=== PATIENT | female | born 1995 | race Caucasian/White ===

== ENCOUNTER 2022-11-24 13:10 | Emergency (ER) | payer OTHER ==
[~2022-11-24] VITALS: Ht 180.3 cm; Wt 85.4 kg
[2022-11-24] MEDS ORDERED: DERMABOND TOPICAL SKIN ADHESIVE TOP ONE (14:10)
[2022-11-24 14:58] VITALS: BP 117/72; TEMP 98.6; O2SAT 100
== END 2022-11-24 15:01 | disposition home or self-care (01) ==
LOC: M ED 13:10
DX: S61.211A Laceration without foreign body of left index finger without damage to nail, initial encounter (principal); W26.0XXA Contact with knife, initial encounter; Y99.0 Civilian activity done for income or pay

== ENCOUNTER → 2022-11-24 | Outpatient (CLI) | payer OTHER ==
[2022-11-24 14:25] LABS: BASO # 0.1 10^3/uL (0.0-0.2); BASO % 0.7 % (0.0-1.0); EOS # 0.6 10^3/uL (0.0-0.5); EOS % 6.8 % (0.0-3.0); HEMATOCRIT 43.5 % (36.0-47.0); HEMOGLOBIN 14.1 g/dl (12.0-15.5); LYMPH # 2.3 10^3/uL (1.5-5.0); LYMPH % 24.4 % (24.0-44.0); MEAN CORPUSCULAR HGB CONC 32.4 g/dl (32.0-36.5); MEAN CORPUSCULAR VOLUME 89.5 fl (80.0-96.0); MONO % 10.3 % (2.0-8.0); NEUTROPHILS # 5.4 10^3/uL (1.5-8.5); NEUTROPHILS % 57.5 % (36.0-66.0); PLATELET COUNT, AUTOMATED 289 10^3/uL (150-450); RED BLOOD COUNT 4.86 10^6/uL (4.00-5.40); WHITE BLOOD COUNT 9.4 10^3/uL (4.0-10.0)
[2022-11-24 14:53] LABS: THYROID STIMULATING HORMONE 2.532 uIU/ML (0.55-4.78)
[2022-11-24 14:54] LABS: FREE T4 1.21 NG/DL (0.89-1.76)
[2022-11-24 15:04] LABS: ALBUMIN 4.2 G/DL (3.2-5.2); ALKALINE PHOSPHATASE 54 U/L (46-116); ALT/SGPT 16 U/L (7.0-40); AST/SGOT 14 U/L (<34); BILIRUBIN,TOTAL 0.7 MG/DL (0.3-1.2); BLOOD UREA NITROGEN 11 MG/DL (9-23); CALCIUM LEVEL 9.4 MG/DL (8.5-10.1); CARBON DIOXIDE LEVEL 24 MMOL/L (20-31); CHLORIDE LEVEL 105 MMOL/L (98-107); CHOLESTEROL LEVEL 150 MG/DL (<200); CHOLESTEROL RISK RATIO 3.18 (<5); CREATININE FOR GFR 0.85 MG/DL (0.55-1.30); GLOMERULAR FILTRATION RATE > 60.0 (>60); GLUCOSE, FASTING 84 MG/DL (60-100); HDL CHOLESTEROL 47.1 MG/DL (>40); LDL CHOLESTEROL 92.3 MG/DL (<100); NON-HDL-C 102.9 MG/DL; POTASSIUM SERUM 4.4 MMOL/L (3.5-5.1); SODIUM LEVEL 138 MMOL/L (136-145); TOTAL PROTEIN 7.1 G/DL (5.7-8.2); TRIGLYCERIDES LEVEL 53 MG/DL (<150)
== END ==
LOC: M PLALAB 09:45
PROVIDERS: ATTEND Nurse Practitioner Family
DX: Z13.220 Encounter for screening for lipoid disorders (principal); R53.83 Other fatigue

== ENCOUNTER 2023-01-15 13:05 | Emergency (ER) | payer OTHER ==
[~2023-01-15] VITALS: Ht 180.3 cm; Wt 81.8 kg
[2023-01-15 13:06] VITALS: BP 130/77; TEMP 99.8; O2SAT 100
== END 2023-01-15 16:12 | disposition home or self-care (01) ==
LOC: M ED 13:05
DX: S01.511A Laceration without foreign body of lip, initial encounter (principal); S60.221A Contusion of right hand, initial encounter; W55.82XA Struck by other mammals, initial encounter; Y92.9 Unspecified place or not applicable

== ENCOUNTER → 2023-03-29 | Outpatient (REF) | payer OTHER | LOC: M SFHCWAGY 12:26 | PROVIDERS: ATTEND Nurse Practitioner Family | DX: N73.9 Female pelvic inflammatory disease, unspecified (principal); Z12.4 Encounter for screening for malignant neoplasm of cervix | CPT/HCPCS: 87070; 87624; G0123 ==

== ENCOUNTER → 2023-05-16 | Outpatient (REF) | payer OTHER | LOC: M LAB REF 17:46 | PROVIDERS: ATTEND Registered Nurse | DX: J03.90 Acute tonsillitis, unspecified (principal) ==

== ENCOUNTER → 2023-05-19 | Outpatient (REF) | payer OTHER | LOC: M SFHCWAGY 13:40 | PROVIDERS: ATTEND Nurse Practitioner Family | DX: Z12.4 Encounter for screening for malignant neoplasm of cervix (principal); Z77.9 Other contact with and (suspected) exposures hazardous to health ==

== ENCOUNTER → 2023-10-06 | Outpatient (REF) | payer OTHER | LOC: M SFHCWAGY 17:34 | PROVIDERS: ATTEND Nurse Practitioner Family | DX: N73.9 Female pelvic inflammatory disease, unspecified (principal) ==

== ENCOUNTER 2024-05-16 07:21 | Day surgery (SDC) | payer OTHER ==
[~2024-05-16] VITALS: Ht 180.3 cm; Wt 81.6 kg
[2024-05-16] MEDS ORDERED: MIDAZOLAM INJ 2MG/2ML VIAL As Ordered ONE (08:04)
[2024-05-16] MEDS ORDERED: propofoL 200 MG/20 ML VIAL As Ordered ONE (08:04)
[2024-05-16] MEDS ORDERED: LIDOCAINE 2% 100MG/5ML SDV (FOR ANES.) As Ordered ONE (08:04)
[2024-05-16] MEDS ORDERED: fentaNYL 100 MCG/2 ML INJECTION As Ordered ONE (08:04)
[2024-05-16] MEDS ORDERED: ROCURONIUM BROMIDE 50MG/5ML VIAL As Ordered ONE (08:04)
[2024-05-16] MEDS: LR 1,000 ML IV SCH (08:19)
[2024-05-16] MEDS ORDERED: ONDANSETRON 4MG 2ML VIAL As Ordered ONE (09:04)
[2024-05-16] MEDS ORDERED: ACETAMINOPHEN 1000MG/100ML IV BAG As Ordered ONE (09:05)
[2024-05-16] MEDS ORDERED: SUGAMMADEX SODIUM 500 MG/5 ML VIAL (BRIDION) As Ordered ONE (09:07)
[2024-05-16] MEDS: OXYMETAZOLINE 0.05% NASAL SPRAY As Ordered ONE (09:18)
[2024-05-16] MEDS ORDERED: ONDANSETRON 4MG 2ML VIAL IV PRN (09:35)
[2024-05-16] MEDS ORDERED: LR 1,000 ML IV SCH (09:35)
[2024-05-16] MEDS ORDERED: fentaNYL 100 MCG/2 ML INJECTION IV PRN (09:35)
[2024-05-16] MEDS ORDERED: oxyCODONE 5MG TAB PO PRN (09:50)
[2024-05-16] MEDS: HYDROMORPHONE HCL 0.5 MG/ 0.5 ML SYRINGE IV PRN (09:53)
[2024-05-16 11:15] VITALS: BP 111/62; TEMP 97.6; O2SAT 100
== END 2024-05-16 11:27 | disposition home or self-care (01) ==
LOC: M SDC 07:21
PROVIDERS: ATTEND Otolaryngology
DX: J35.01 Chronic tonsillitis (principal); F41.9 Anxiety disorder, unspecified; F32.A Depression, unspecified; F12.10 Cannabis abuse, uncomplicated
CPT/HCPCS: 42826; 81025; J0131; J1100; J1171; J2250; J2405; J3010